=== PATIENT | male | born 1970 | race Caucasian/White ===

== ENCOUNTER 2021-09-25 17:42 | Inpatient (IN) | payer OTHER ==
[~2021-09-25] VITALS: Ht 172.7 cm; Wt 85.3 kg
[2021-09-25 17:47] VITALS: BP 146/90
[2021-09-25] MEDS ORDERED: ASPIRIN 325 MG TAB PO ONE (17:50)
[2021-09-25 17:55] LABS: BASOPHILS # (AUTO) 0.1 K/uL (0.00-0.22); BASOPHILS % (AUTO) 0.8 % (0.0-2.0); EOSINOPHILS # (AUTO) 0.2 K/uL (0-0.4); EOSINOPHILS % (AUTO) 1.9 % (0.0-4.0); HEMOGLOBIN 13.4 g/dL (12.0-18.0); LYMPHOCYTES % (AUTO) 15.5 % (20.5-51.1); MEAN CORPUSCULAR HEMOGLOBIN 28 pg (27-31); MEAN CORPUSCULAR HGB CONC 34 g/dL (33-37); MONOCYTES # (AUTO) 0.7 K/uL (0.8-1.0); MONOCYTES % (AUTO) 5.6 % (1.7-9.3); NEUTROPHILS % (AUTO) 76.2 % (42.2-75.2); PLATELET COUNT (AUTO) 408 K/uL (140-450); RED BLOOD CELL COUNT(AUTO) 4.88 MIL/uL (4.20-6.10); RED CELL DISTRIBUTION WIDTH 14.2 % (11.6-13.7); WHITE BLOOD COUNT (AUTO) 13.1 K/uL (4.8-10.8)
[2021-09-25] MEDS ORDERED: NACL 0.9% 1,000 ML IV ONE (18:00)
[2021-09-25] MEDS ORDERED: ONDANSETRON 4 MG/2 ML VIAL IVP ONE ×2 (18:00→19:25)
[2021-09-25 18:12] LABS: ALBUMIN 2.6 g/dL (3.4-5.0); ANION GAP 13.8 (8-16); ASPARTATE AMINOTRANSFERASE 29 U/L (15-37); CARBON DIOXIDE 25.2 mmol/L (21-32); CHLORIDE 102 mmol/L (98-107); GFR ARICAN-AMERICAN 101 mL/min (>90); GLUCOSE 284 mg/dL (74-106); LIPASE 136 U/L (73-393); SODIUM SERUM 138 mmol/L (136-145); TOTAL BILIRUBIN 0.3 mg/dL (0.0-1.0); UREA NITROGEN, BLOOD 14 mg/dL (7-18)
[2021-09-25] MEDS ORDERED: KETOROLAC 30 MG/ML VIAL IVP ONE (18:25)
[2021-09-25] MEDS ORDERED: METOCLOPRAMIDE 10 MG/2 ML INJ VIAL IVP ONE (20:20)
[2021-09-25] MEDS ORDERED: MIDAZOLAM 5 MG/5 ML VIAL IV ONE (20:55)
[2021-09-25] MEDS: NACL 0.9% 1,000 ML IV SCH (22:48)
[2021-09-26] MEDS: ONDANSETRON 4 MG/2 ML VIAL IVP PRN ×3 (01:17→15:42)
[2021-09-26] MEDS: hydrALAZINE 20 MG/ML VIAL IVP PRN ×3 (06:37→21:08)
[2021-09-26 06:53] LABS: BASOPHILS # (AUTO) 0.1 K/uL (0.00-0.22); BASOPHILS % (AUTO) 1.1 % (0.0-2.0); EOSINOPHILS # (AUTO) 0.3 K/uL (0-0.4); EOSINOPHILS % (AUTO) 3.1 % (0.0-4.0); HEMATOCRIT 36.3 % (36-52); HEMOGLOBIN 12.1 g/dL (12.0-18.0); LYMPHOCYTES # (AUTO) 2.2 K/uL (2.0-11.5); LYMPHOCYTES % (AUTO) 21.6 % (20.5-51.1); MEAN CORPUSCULAR HEMOGLOBIN 28 pg (27-31); MEAN CORPUSCULAR HGB CONC 33 g/dL (33-37); MEAN CORPUSCULAR VOLUME 82.7 fL (80-94); MONOCYTES # (AUTO) 0.8 K/uL (0.8-1.0); MONOCYTES % (AUTO) 7.6 % (1.7-9.3); NEUTROPHILS # (AUTO) 6.8 K/uL (1.8-7.7); NEUTROPHILS % (AUTO) 66.6 % (42.2-75.2); PLATELET COUNT (AUTO) 317 K/uL (140-450); RED BLOOD CELL COUNT(AUTO) 4.39 MIL/uL (4.20-6.10); RED CELL DISTRIBUTION WIDTH 13.8 % (11.6-13.7); WHITE BLOOD COUNT (AUTO) 10.2 K/uL (4.8-10.8)
[2021-09-26 07:09] LABS: ANION GAP 10.2 (8-16); POTASSIUM 4.2 mmol/L (3.5-5.1)
[2021-09-26 08:00] VITALS: BP 193/122
[2021-09-26] MEDS: NACL 0.9% 1,000 ML IV SCH ×2 (09:22→19:54)
[2021-09-26] MEDS ORDERED: MAG SULF 2000 MG/WATER PREMIX 50 ML IV PRN (10:00)
[2021-09-26] MEDS: METOCLOPRAMIDE 10 MG/2 ML INJ VIAL IVP PRN ×4 (10:27→23:51)
[2021-09-26] MEDS ORDERED: POTASSIUM CHLORIDE 10 MEQ TABER PO PRN (11:05)
[2021-09-26] MEDS ORDERED: MORPHINE SULFATE 2 MG/ML SYR IVP PRN (11:05)
[2021-09-26] MEDS ORDERED: DOCUSATE SODIUM 100 MG GELCAP PO PRN (11:05)
[2021-09-26] MEDS ORDERED: ZOLPIDEM 10 MG TAB PO PRN (11:05)
[2021-09-26] MEDS ORDERED: ONDANSETRON 4 MG/2 ML VIAL IVP PRN (11:05)
[2021-09-26] MEDS ORDERED: ACETAMINOPHEN 325 MG TAB PO PRN (11:05)
[2021-09-26] MEDS ORDERED: lisinopriL 10 MG TAB PO SCH (11:15)
[2021-09-26 12:00] VITALS: BP 187/115
[2021-09-26 16:00] VITALS: BP 162/103
[2021-09-26 20:00] VITALS: BP 187/111
[2021-09-27] VITALS (13 sets, daily range): BP systolic 122–174; BP diastolic 63–116
[2021-09-27] MEDS: NACL 0.9% 1,000 ML IV SCH ×2 (06:34→14:05)
[2021-09-27] MEDS: PANTOPRAZOLE 40 MG INJ VIAL IVP SCH (09:42)
[2021-09-27] MEDS: lisinopriL 10 MG TAB PO SCH (09:42)
[2021-09-27] MEDS: ONDANSETRON 4 MG/2 ML VIAL IVP PRN ×2 (13:35→19:55)
[2021-09-27] MEDS: hydrALAZINE 20 MG/ML VIAL IVP PRN (16:41)
[2021-09-27] MEDS: hydrALAZINE 10 MG TAB PO SCH (20:56)
[2021-09-28] VITALS: BP 143/89
[2021-09-28] MEDS: PROMETHAZINE 25 MG TAB PO PRN ×3 (01:13→19:01)
[2021-09-28] MEDS: NACL 0.9% 1,000 ML IV SCH ×2 (01:35→15:00)
[2021-09-28 04:00] VITALS: BP 165/107
[2021-09-28] MEDS: hydrALAZINE 20 MG/ML VIAL IVP PRN (05:19)
[2021-09-28 06:04] LABS: ANION GAP 14.3 (8-16); CARBON DIOXIDE 23.8 mmol/L (21-32); POTASSIUM 4.1 mmol/L (3.5-5.1)
[2021-09-28 06:26] LABS: BASOPHILS # (AUTO) 0.1 K/uL (0.00-0.22); BASOPHILS % (AUTO) 0.5 % (0.0-2.0); EOSINOPHILS # (AUTO) 0.1 K/uL (0-0.4); EOSINOPHILS % (AUTO) 0.6 % (0.0-4.0); HEMATOCRIT 37.8 % (36-52); HEMOGLOBIN 12.5 g/dL (12.0-18.0); LYMPHOCYTES # (AUTO) 1.8 K/uL (2.0-11.5); LYMPHOCYTES % (AUTO) 17.9 % (20.5-51.1); MEAN CORPUSCULAR HEMOGLOBIN 27 pg (27-31); MEAN CORPUSCULAR HGB CONC 33 g/dL (33-37); MEAN CORPUSCULAR VOLUME 82.8 fL (80-94); MONOCYTES # (AUTO) 0.7 K/uL (0.8-1.0); MONOCYTES % (AUTO) 6.6 % (1.7-9.3); NEUTROPHILS # (AUTO) 7.4 K/uL (1.8-7.7); NEUTROPHILS % (AUTO) 74.4 % (42.2-75.2); PLATELET COUNT (AUTO) 386 K/uL (140-450); RED BLOOD CELL COUNT(AUTO) 4.56 MIL/uL (4.20-6.10); RED CELL DISTRIBUTION WIDTH 14.2 % (11.6-13.7)
[2021-09-28 08:00] VITALS: BP 161/109
[2021-09-28] MEDS: PANTOPRAZOLE 40 MG INJ VIAL IVP SCH (08:41)
[2021-09-28] MEDS: hydrALAZINE 10 MG TAB PO SCH ×3 (08:42→13:36)
[2021-09-28] MEDS: lisinopriL 10 MG TAB PO SCH (08:42)
[2021-09-28] MEDS ORDERED: CRUSHER, PILL MC ONE (09:12)
[2021-09-28] MEDS ORDERED: ONDANSETRON 4 MG TAB PO PRN ×2 (10:45→17:10)
[2021-09-28] MEDS ORDERED: ZOLPIDEM 5 MG TAB PO PRN (11:25)
[2021-09-28 12:00] VITALS: BP 162/100
[2021-09-28] MEDS ORDERED: ONDANSETRON 4 MG/2 ML VIAL IVP PRN (12:25)
[2021-09-28] MEDS ORDERED: ONDANSETRON 4 MG/2 ML VIAL ONE (12:26)
[2021-09-28] MEDS: LEVOFLOXACIN 500 MG/D5W PREMIX 100 ML IV SCH (14:00)
[2021-09-28 14:06] LABS: PROTHROMBIN TIME 10.1 secs (10.8-13.4)
[2021-09-28] MEDS ORDERED: bisacodyL 5 MG TABEC PO ONE (14:30)
[2021-09-28] MEDS ORDERED: bisacodyL 5 MG TABEC PO SCH (14:45)
[2021-09-28] MEDS ORDERED: BOWEL EVACUANT DRINK 4,000 ML PDS PO SCH (15:00)
[2021-09-28 15:04] LABS: APPEARANCE,URINE CLEAR (CLEAR); BILIRUBIN,URINE 1+ (NEGATIVE); BLOOD, URINE TRACE-I (NEGATIVE); COLOR,URINE YELLOW (YELLOW); LEUKOCYTE ESTERASE ,URINE NEGATIVE (NEGATIVE); NITRITE, URINE NEGATIVE (NEGATIVE); PH,URINE 5.5 (5.0-9.0); UGLUCOSE 3+ (NEGATIVE)
[2021-09-28 15:08] LABS: RBC,URINE 0-5 /HPF (0-5); WBC,URINE NONE SEEN /HPF (0-5)
[2021-09-28 16:00] VITALS: BP 149/73
[2021-09-28 20:00] VITALS: BP 180/116
[2021-09-28] MEDS ORDERED: METOPROLOL 25 MG TAB PO SCH (21:00)
[2021-09-28] MEDS: METOPROLOL 50 MG TAB PO SCH (21:24)
[2021-09-29] VITALS: BP 199/67
[2021-09-29] MEDS: NACL 0.9% 1,000 ML IV SCH ×3 (00:25→20:56)
[2021-09-29 04:00] VITALS: BP 199/109
[2021-09-29] MEDS: METOPROLOL 50 MG TAB PO SCH ×3 (05:02→20:56)
[2021-09-29 05:54] LABS: ANION GAP 13.8 (8-16); POTASSIUM 3.8 mmol/L (3.5-5.1)
[2021-09-29 06:06] LABS: BASOPHILS # (AUTO) 0.1 K/uL (0.00-0.22); BASOPHILS % (AUTO) 0.5 % (0.0-2.0); EOSINOPHILS # (AUTO) 0.1 K/uL (0-0.4); EOSINOPHILS % (AUTO) 0.6 % (0.0-4.0); HEMATOCRIT 36.5 % (36-52); MEAN CORPUSCULAR HEMOGLOBIN 27 pg (27-31); MEAN CORPUSCULAR HGB CONC 33 g/dL (33-37); MEAN CORPUSCULAR VOLUME 83.1 fL (80-94); MONOCYTES # (AUTO) 0.7 K/uL (0.8-1.0); MONOCYTES % (AUTO) 6.2 % (1.7-9.3); NEUTROPHILS # (AUTO) 8.4 K/uL (1.8-7.7); NEUTROPHILS % (AUTO) 74.7 % (42.2-75.2); PLATELET COUNT (AUTO) 367 K/uL (140-450); RED BLOOD CELL COUNT(AUTO) 4.39 MIL/uL (4.20-6.10); RED CELL DISTRIBUTION WIDTH 14.3 % (11.6-13.7); WHITE BLOOD COUNT (AUTO) 11.2 K/uL (4.8-10.8)
[2021-09-29 08:00] VITALS: BP 155/84
[2021-09-29] MEDS: PANTOPRAZOLE 40 MG INJ VIAL IVP SCH (09:38)
[2021-09-29] MEDS: hydrALAZINE 20 MG/ML VIAL IVP PRN (09:45)
[2021-09-29] MEDS ORDERED: MIDAZOLAM 5 MG/5 ML VIAL ONE (11:07)
[2021-09-29] MEDS ORDERED: fentaNYL citrate 0.05 MG/ML VIAL ONE (11:07)
[2021-09-29] MEDS ORDERED: diphenhydrAMINE 50 MG/ML VIAL ONE (11:07)
[2021-09-29] MEDS: LEVOFLOXACIN 500 MG/D5W PREMIX 100 ML IV SCH (11:47)
[2021-09-29 12:00] VITALS: BP 96/53
[2021-09-29] MEDS ORDERED: MIDAZOLAM 5 MG/5 ML VIAL IV ONE (12:35)
[2021-09-29] MEDS ORDERED: fentaNYL citrate 0.05 MG/ML VIAL IVP ONE (12:35)
[2021-09-29 16:00] VITALS: BP 155/95
[2021-09-29] MEDS: ONDANSETRON 4 MG/2 ML VIAL IVP PRN (18:22)
[2021-09-29 20:00] VITALS: BP 157/88
[2021-09-30] VITALS: BP 125/79
[2021-09-30 04:00] VITALS: BP 159/94
[2021-09-30] MEDS: METOPROLOL 50 MG TAB PO SCH ×3 (05:10→20:40)
[2021-09-30] MEDS: NACL 0.9% 1,000 ML IV SCH ×2 (06:25→15:07)
[2021-09-30 07:21] LABS: BASOPHILS # (AUTO) 0.1 K/uL (0.00-0.22); BASOPHILS % (AUTO) 0.6 % (0.0-2.0); EOSINOPHILS # (AUTO) 0.2 K/uL (0-0.4); EOSINOPHILS % (AUTO) 1.7 % (0.0-4.0); HEMATOCRIT 34.3 % (36-52); HEMOGLOBIN 11.3 g/dL (12.0-18.0); LYMPHOCYTES # (AUTO) 1.8 K/uL (2.0-11.5); LYMPHOCYTES % (AUTO) 20.9 % (20.5-51.1); MEAN CORPUSCULAR HEMOGLOBIN 27 pg (27-31); MEAN CORPUSCULAR HGB CONC 33 g/dL (33-37); MEAN CORPUSCULAR VOLUME 82.7 fL (80-94); MONOCYTES # (AUTO) 0.9 K/uL (0.8-1.0); MONOCYTES % (AUTO) 9.7 % (1.7-9.3); NEUTROPHILS # (AUTO) 5.9 K/uL (1.8-7.7); NEUTROPHILS % (AUTO) 67.1 % (42.2-75.2); PLATELET COUNT (AUTO) 328 K/uL (140-450); RED BLOOD CELL COUNT(AUTO) 4.15 MIL/uL (4.20-6.10); RED CELL DISTRIBUTION WIDTH 14.4 % (11.6-13.7); WHITE BLOOD COUNT (AUTO) 8.8 K/uL (4.8-10.8)
[2021-09-30 07:26] LABS: ANION GAP 11.5 (8-16); CARBON DIOXIDE 28.1 mmol/L (21-32); POTASSIUM 3.6 mmol/L (3.5-5.1)
[2021-09-30 08:00] VITALS: BP 175/98
[2021-09-30] MEDS ORDERED: DICYCLOMINE HCL LIQUID 10 MG/5 ML UDC PO SCH (08:25)
[2021-09-30] MEDS ORDERED: ALUMINUM HYD/MAG/SIMETHICONE 30 ML UDC PO SCH (08:25)
[2021-09-30] MEDS: PANTOPRAZOLE 40 MG INJ VIAL IVP SCH (08:39)
[2021-09-30] MEDS: hydrALAZINE 20 MG/ML VIAL IVP PRN (08:44)
[2021-09-30 10:00] VITALS: BP 120/77
[2021-09-30] MEDS: ONDANSETRON 4 MG/2 ML VIAL IVP PRN (10:47)
[2021-09-30] MEDS: LEVOFLOXACIN 500 MG/D5W PREMIX 100 ML IV SCH (11:17)
[2021-09-30] MEDS ORDERED: MORPHINE SULFATE 2 MG/ML SYR IVP PRN (14:55)
[2021-09-30] MEDS: PROMETHAZINE 25 MG TAB PO PRN (15:59)
[2021-09-30 16:00] VITALS: BP 151/96
[2021-09-30 20:00] VITALS: BP 151/73
[2021-10-01] VITALS: BP 160/98
[2021-10-01] MEDS: NACL 0.9% 1,000 ML IV SCH ×3 (02:12→23:58)
[2021-10-01 04:00] VITALS: BP 150/92
[2021-10-01] MEDS: METOPROLOL 50 MG TAB PO SCH ×5 (05:00→20:39)
[2021-10-01] MEDS: ONDANSETRON 4 MG/2 ML VIAL IVP PRN (05:15)
[2021-10-01 07:04] LABS: BASOPHILS # (AUTO) 0.1 K/uL (0.00-0.22); BASOPHILS % (AUTO) 0.6 % (0.0-2.0); EOSINOPHILS # (AUTO) 0.2 K/uL (0-0.4); EOSINOPHILS % (AUTO) 1.7 % (0.0-4.0); HEMATOCRIT 32.7 % (36-52); LYMPHOCYTES # (AUTO) 1.9 K/uL (2.0-11.5); LYMPHOCYTES % (AUTO) 20.6 % (20.5-51.1); MEAN CORPUSCULAR HEMOGLOBIN 28 pg (27-31); MEAN CORPUSCULAR HGB CONC 34 g/dL (33-37); MEAN CORPUSCULAR VOLUME 82.7 fL (80-94); MONOCYTES # (AUTO) 0.9 K/uL (0.8-1.0); MONOCYTES % (AUTO) 9.1 % (1.7-9.3); NEUTROPHILS # (AUTO) 6.3 K/uL (1.8-7.7); PLATELET COUNT (AUTO) 290 K/uL (140-450); RED BLOOD CELL COUNT(AUTO) 3.96 MIL/uL (4.20-6.10); RED CELL DISTRIBUTION WIDTH 14.5 % (11.6-13.7); WHITE BLOOD COUNT (AUTO) 9.3 K/uL (4.8-10.8)
[2021-10-01 07:42] LABS: ANION GAP 10.2 (8-16); CARBON DIOXIDE 28.1 mmol/L (21-32); POTASSIUM 3.3 mmol/L (3.5-5.1)
[2021-10-01 08:00] VITALS: BP 170/97
[2021-10-01] MEDS: PANTOPRAZOLE 40 MG INJ VIAL IVP SCH (08:18)
[2021-10-01] MEDS: PROMETHAZINE 25 MG TAB PO PRN (08:31)
[2021-10-01] MEDS: hydrALAZINE 20 MG/ML VIAL IVP PRN (10:28)
[2021-10-01] MEDS ORDERED: MORPHINE SULFATE 4 MG/ML SYR IVP PRN (11:15)
[2021-10-01 12:00] VITALS: BP 170/104
[2021-10-01] MEDS: LEVOFLOXACIN 500 MG/D5W PREMIX 100 ML IV SCH (12:28)
[2021-10-01] MEDS: ONDANSETRON 8 MG in NACL 0.9% 50 ML IVP PRN (12:44)
[2021-10-01 16:00] VITALS: BP 129/83
[2021-10-01 20:00] VITALS: BP 150/92
[2021-10-02] VITALS: BP 156/91
[2021-10-02 04:00] VITALS: BP 155/85
[2021-10-02] MEDS ORDERED: ONDANSETRON 4 MG/2 ML VIAL ONE (04:12)
[2021-10-02] MEDS: METOPROLOL 50 MG TAB PO SCH ×2 (04:20→13:21)
[2021-10-02] MEDS: ONDANSETRON 8 MG in NACL 0.9% 50 ML IVP PRN ×2 (04:21→13:02)
[2021-10-02 08:00] VITALS: BP 185/110
[2021-10-02] MEDS: PANTOPRAZOLE 40 MG INJ VIAL IVP SCH (08:16)
[2021-10-02] MEDS: NACL 0.9% 1,000 ML IV SCH (08:16)
[2021-10-02] MEDS: hydrALAZINE 20 MG/ML VIAL IVP PRN (08:20)
[2021-10-02 10:59] LABS: BASOPHILS % (AUTO) 0.5 % (0.0-2.0); EOSINOPHILS # (AUTO) 0.2 K/uL (0-0.4); EOSINOPHILS % (AUTO) 2.2 % (0.0-4.0); HEMATOCRIT 36.1 % (36-52); HEMOGLOBIN 12.1 g/dL (12.0-18.0); LYMPHOCYTES % (AUTO) 19.8 % (20.5-51.1); MEAN CORPUSCULAR HEMOGLOBIN 27 pg (27-31); MEAN CORPUSCULAR HGB CONC 33 g/dL (33-37); MEAN CORPUSCULAR VOLUME 81.9 fL (80-94); MONOCYTES # (AUTO) 0.7 K/uL (0.8-1.0); NEUTROPHILS # (AUTO) 7.2 K/uL (1.8-7.7); NEUTROPHILS % (AUTO) 70.5 % (42.2-75.2); PLATELET COUNT (AUTO) 322 K/uL (140-450); RED BLOOD CELL COUNT(AUTO) 4.41 MIL/uL (4.20-6.10); RED CELL DISTRIBUTION WIDTH 14.7 % (11.6-13.7); WHITE BLOOD COUNT (AUTO) 10.2 K/uL (4.8-10.8)
[2021-10-02 11:27] LABS: CARBON DIOXIDE 27.3 mmol/L (21-32); CREATININE 0.8 mg/dL (0.6-1.3); POTASSIUM 3.3 mmol/L (3.5-5.1)
[2021-10-02 12:00] VITALS: BP 151/106
[2021-10-02] MEDS: LEVOFLOXACIN 500 MG/D5W PREMIX 100 ML IV SCH (12:00)
[2021-10-02 13:27] VITALS: BP 151/106
[2021-10-02] MEDS ORDERED: METO50TA99 PO (13:55)
[2021-10-02] MEDS ORDERED: PRO40I IVP (13:55)
== END 2021-10-02 15:00 | disposition short-term general hospital (02) | DRG 377 ==
LOC: MED 17:42 → MTU 22:05 → MIC 09-26 04:38 → MTU 09-26 21:28 → MIC 09-26 23:39 → MTU 09-29 14:33
PROVIDERS: ADMIT Family Medicine; ATTEND Family Medicine
PROC: 0DB78ZX Excision of Stomach, Pylorus, Via Natural or Artificial Opening Endoscopic, Diagnostic (ICD-10-PCS; principal; 2021-09-30)
DX: K29.81 Duodenitis with bleeding (principal); E43 Unspecified severe protein-calorie malnutrition; C78.7 Secondary malignant neoplasm of liver and intrahepatic bile duct; I16.0 Hypertensive urgency; K29.71 Gastritis, unspecified, with bleeding; K52.9 Noninfective gastroenteritis and colitis, unspecified; E87.6 Hypokalemia; N40.0 Benign prostatic hyperplasia without lower urinary tract symptoms; Z20.822 Contact with and (suspected) exposure to COVID-19; C80.1 Malignant (primary) neoplasm, unspecified; Z68.28 Body mass index [BMI] 28.0-28.9, adult; R07.89 Other chest pain
CPT/HCPCS: 36415; 71045; 71275; 80048; 80053; 81001; 82272; 83036; 83690; 83735; 84154; 84484; 85025; 85610; 85730; 86677; 87081; 87635-QW; 93005; 96374; 96375; 96376; 99285; C9113; J0360; J1200; J1644; J1885; J1956; J2250; J2270; J2405; J2765; J3010; J3475; Q0162; Q0169; Q9967